=== PATIENT | male | born 2000 | race American Indian/Alaskan Native ===

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

== ENCOUNTER 2022-05-04 13:23 | Emergency (ER) | payer MEDICAID, OTHER ==
[2022-05-04 13:47] VITALS: BP 141/94; PULSE 106
== END 2022-05-04 14:09 | disposition home or self-care (01) ==
LOC: JP.ED 13:23
DX: H10.33 Unspecified acute conjunctivitis, bilateral (principal)
CPT/HCPCS: 99283

== ENCOUNTER 2023-06-10 21:02 | Emergency (ER) | payer MEDICAID | END 2023-06-10 22:40 | disposition home or self-care (01) | LOC: JP.ED 21:02 | DX: L25.5 Unspecified contact dermatitis due to plants, except food (principal) | CPT/HCPCS: 99282 ==